=== PATIENT | female | born 1945 | race Caucasian/White ===

== ENCOUNTER 2019-07-28 16:00 | Inpatient (IN) ==
[2019-07-28] MEDS ORDERED: LASIX IV ONE (17:18)
--- NOTE | 2019-07-28 17:19 | PROVIDER DOCUMENTATION ---
This chart was entered by Daksha Corrales Scribe, acting as scribe for Franky Fisher MD. HPI-Respiratory General - General Chief Complaint: Shortness of Breath Stated Complaint: ABN CHEST X RAY Time Seen by Provider: 07/28/19 16:55 Source: patient Allergies/Adverse Reactions: Patient Allergies Allergy/AdvReac Type Severity Reaction Status Date / Time No Known Allergies Allergy Verified 07/28/19 16:23 Home Medications: Home Medication List Medication Instructions Recorded Confirmed Last Taken Type Albuterol Sulfate [Proair Hfa] 8.5 gm INHALATION Q6HR 07/28/19 07/28/19 Unknown History Apixaban [Eliquis] 5 mg PO DAILY 07/28/19 07/28/19 Unknown History Ascorbic Acid/Ascorbate Sodium 2 tab PO DAILY 07/28/19 07/28/19 Unknown History [Vitamin C 250 mg Tablet Chew] Cholecalciferol (Vit D3) [Vitamin 5,000 unit PO DAILY 07/28/19 07/28/19 Unknown History D3] Fluoxetine [Prozac] 20 mg PO DAILY 07/28/19 07/28/19 Unknown History Insulin Detemir [Levemir] See Protocol SUBCONJUNCTIVAL 07/28/19 07/28/19 Unknown History DIRECTED Ipratropium/Albuterol Sulfate 3 ml INHALATION Q6HR 07/28/19 07/28/19 Unknown History [Iprat-Albut 0.5-3(2.5) mg/3 ml] Iron Polysaccharide Complex [Ezfe 1 tab PO DAILY 07/28/19 07/28/19 Unknown History 200] Losartan/Hydrochlorothiazide 1 tab PO DAILY 07/28/19 07/28/19 Unknown History [Losartan-Hctz 100-12.5 mg Tab] Metformin HCl 850 mg PO BID 07/28/19 07/28/19 Unknown History Omeprazole 40 mg PO DAILY 07/28/19 07/28/19 Unknown History Ondansetron [Zofran] 4 mg PO Q6H PRN PRN 07/28/19 07/28/19 Unknown History Pravastatin Sodium 40 mg PO DAILY 07/28/19 07/28/19 Unknown History - History of Present Illness-Resp Nature of Presenting Problem: 73yof presents to ED cc SOB and abnormal chest Xray. Pt reports she was seen at her PCP/, today and told to come straight to ED b/c Xray showed fluid on lungs. Pt denies N/V/D. Pt has hx of COPD, CHF, HTN, DM and CVA. Quality of Pain: reports: tightness Severity in ED: reports: moderate Onset/Duration: reports: gradual Timing: reports: still present Cough Quality/Degree: reports: no cough Current Respiratory Medication Therapy: Initiated see nurses note Modifying Factors: worse with: exertion Associated Symptoms: reports: shortness of breath, short of breath Similar Symptoms Previously?: Yes Recently seen or treated by another doctor?: Yes (saw PCP today) Review of Systems - Adult - REVIEW OF SYSTEMS - ADULT Constitutional: reports: see HPI. denies: chills, fever, fatique Eyes: reports: no symptoms reported Ears, Nose, Mouth & Throat: reports: no symptoms reported Cardiovascular: reports: see HPI. denies: chest pain Respiratory: reports: see HPI, shortness of breath, wheezing. denies: cough Gastrointestinal: reports: see HPI. denies: diarrhea, nausea, vomiting Genitourinary: reports: no symptoms reported Musculoskeletal: reports: no symptoms reported Integumentary: reports: no symptoms reported Neurological: reports: no symptoms reported Psychiatric: reports: no symptoms reported Endocrine: reports: no symptoms reported Hematologic/Lymphatic: reports: no symptoms reported Allergic/Immunologic: reports: no symptoms reported All Other Systems: Reviewed and Negative Past History - Adult - PAST MEDICAL HISTORY-ADULT Review of Records: reports: Nursing Assessment Review, Medications Reviewed, Social history reviewed & non-contributory. Major Childhood Illnesses: reports: denies history Cardiovascular: reports: denies history Respiratory: reports: denies history Gastrointestinal: reports: denies history Obstetrical/Gynecological: reports: denies history Genitourinary: reports: denies history Musculoskeletal: reports: denies history Neurological: reports: denies history Endocrine/Immune: reports: denies history Other Conditions: reports: denies history - IMMUNIZATION STATUS Childhood Immunizations: See Nurse Assessment Flu Vaccine: See Nurse Assessment - FAMILY HISTORY Family History: reviewed, not pertinent - SOCIAL HISTORY Smoking: chew Physical Exam-General - PHYSICAL EXAM-ADULT Initial Vital Signs Reviewed: Yes - CONSTITUTIONAL General Appearance: appears well, alert. negative: anxious, combative - EYES Eyes: PERRL/EOMI, pink conjunctivae. negative: photophobia - HEAD, EARS, NOSE, MOUTH & THROAT HENMT: normocephalic/atraumatic, moist mucous membranes, normal ENT inspection. negative: angioedema - NECK Neck: non-tender, full range of motion, supple, normal inspection. negative: C- spine tenderness - RESPIRATORY Respiratory: chest non-tender, normal breath sounds, no pleuratic chest pain, no respiratory distress, no accessory muscle use, wheezing. negative: lungs clear, crackles, rales, rhonchi, stridor - CARDIOVASCULAR Cardiovascular: normal peripheral pulses, regular rate, rhythm, no gallop, no JVD, no murmur. negative: no edema, bradycardia, tachycardia - GASTROINTESTINAL (ABDOMEN) Abdominal Exam: normal bowel sounds, non tender, soft, no organomegaly, no pulsatile mass. negative: distended, guarding, rigid, rebound, tenderness - MUSCULOSKELETAL Extremity: pedal edema. negative: deformity - SKIN Integumentary: swelling (both lower legs). negative: jaundice - PSYCHIATRIC Psych/Mental Status: normal mood/affect, oriented x 3. negative: anxious, disheveled Progress - PLAN OF CARE/RESULTS Progress/Plan/Lab Results: Vital Signs - 8 hr 07/28/19 16:08 07/28/19 17:09 Temperature 98.7 F Pulse Rate 88 83 Respiratory Rate 22 26 H Blood Pressure 182/92 194/105 O2 Sat by Pulse Oximetry 93 L 98 - CONSULTS/PCP/HOSPITALIST Notification #1 *Consult/PCP/Hospitalist*: Dr. Clancy Time Discussed: 17:06 Consult Disposition: Admit (accepted pt) Departure - Departure Date of Disposition Decision: 07/28/19 Time of Disposition Decision: 17:15 DIAGNOSIS: Heart failure Qualifiers: Heart failure type: unspecified Heart failure chronicity: unspecified Qualified Code(s): I50.9 - Heart failure, unspecified Disposition: ADMITTED INPATIENT 09 Certified Medical Emergency: Emergent Condition: Stable Additional Freetext Instructions: ED Follow Up Instructions: You have been treated by a care provider in the Emergency Department. These instructions are being provided to you so you can have an understanding of how to care for yourself upon discharge. Upon discharge from the Emergency Department, you are responsible for making arrangements for follow-up care by a physician of your choice. Take all prescribed medications as directed. Return to the Emergency Department immediately for any new or worsening symptoms. You may call the Physician Referral phone number at [phone] to obtain a list of Physicians who are taking new patients. Referrals and Follow-Ups: Theron Looney CRNP [Primary Care Provider] - - Critical Care Note This patient required my direct & personal management of CC.: No Attestation - Physician/ MADELYN Attestation Patient care was provided by Advanced Practice Provider:: No The physician spent face to face time with patient:: Yes Advanced Practice Provider documentation review:: Supervising physician onsite and consulted in the evaluation and care of this patient. The physician did have a face to face encounter with the patient. This chart was documented by the indicated scribe, (Daksha Corrales Scribe) and accurately reflects the services I performed and decisions made by me, Franky Fisher MD, as attested by the provider's signature.
[2019-07-28 17:32] LABS: BASO# 0.06 X1000 (0.0-0.2); EOS# 0.44 X1000 (0.0-0.7); EOS% 7.4 % (0.0-10.0); HEMATOCRIT 31.8 % (37.0-47.0); HEMOGLOBIN 9.4 g/dL (12.0-16.0); IMM GRAN# 0.02 X1000 (0.0-0.04); IMM GRAN% 0.3 % (0.0-0.5); LYMPH# 1.22 X1000 (1.2-3.4); LYMPH% 20.4 % (20.5-51.1); MCHC 29.6 g/dL (33-37); MCV 88.1 FL (81-99); MONO% 6.7 % (1.7-9.3); MPV 9.9 FL (7.4-10.4); NEUT# 3.84 X1000 (1.4-6.5); NEUT% 64.2 % (42.2-75.2); PLT 299 X1000 (130-400); RBC 3.61 XMIL (4.2-5.4); RDW 15.7 % (11.5-14.5); WBC 5.98 X1000 (4.8-10.8)
[2019-07-28 17:52] LABS: CALCIUM 8.4 mg/dL (8.8-10.2); CREATININE 1.4 mg/dL (0.5-0.9); POTASSIUM 4.8 mmol/L (3.5-5.1)
[2019-07-28] MEDS ORDERED: ZOFRAN PO PRN (18:24)
[2019-07-28] MEDS ORDERED: TYLENOL PO PRN (18:24)
[2019-07-28] MEDS ORDERED: ZOFRAN IV PRN (18:24)
[2019-07-28] MEDS: LASIX IV SCH (19:53)
[2019-07-28] MEDS: HUMALOG SUBQ SCH (20:29)
[2019-07-28 21:12] LABS: BILIRUBIN URINE NEGATIVE (NEGATIVE); BLOOD URINE NEGATIVE (NEGATIVE); CLARITY CLEAR (CLEAR); COLOR YELLOW; GLUCOSE URINE NEGATIVE (NEGATIVE); KETONE URINE NEGATIVE (NEGATIVE); LEUKOCYTES URINE NEGATIVE (NEGATIVE); NITRITE URINE NEGATIVE (NEGATIVE); PH URINE 6.5; PROTEIN URINE 1+(30 mg/dL) mg/dL (NEGATIVE); SP GRAVITY URINE 1.005; UROBILINOGEN URINE NORMAL
[2019-07-28 21:17] LABS: URINE BACTERIA NEGATIVE /HFP; URINE EPITHELIAL CELLS <10 /HPF (<10); URINE RBC <10 /HPF (<10); URINE SOURCE CLEAN CATCH; URINE WBC <10 /HPF (<10)
[2019-07-28] MEDS: DUONEB (A & A) INH SCH (21:52)
[2019-07-28] MEDS ORDERED: VENTOLIN HFA INH SCH (22:00)
--- NOTE | 2019-07-28 22:22 | HISTORY AND PHYSICAL ---
PRIMARY CARE PHYSICIAN: SAMIR Contreras CHIEF COMPLAINT: Shortness of breath x2 weeks that has progressively worsened. HISTORY OF PRESENTING ILLNESS: This is a 73-year-old female who presents to [facility] ER with complaints of shortness of breath over the past 2 weeks. States that she saw her primary care physician Dr. Looney earlier this week on the and got a chest x-ray, went back to see him today because her shortness of breath had worsened and so he sent her to the emergency room after her chest x-ray that was done on 07/24/2019 showed a new large right pleural effusion, cardiomegaly and pulmonary emphysema. So, she will be admitted for further evaluation and treatment. PAST MEDICAL HISTORY: COPD, CHF, CVA, hypertension, diabetes type 2. PAST SURGICAL HISTORY: A colon surgery but family was unaware of exactly what it was, a cholecystectomy and an appendectomy. FAMILY HISTORY: Reviewed and noncontributory. SOCIAL HISTORY: She currently lives with family. Chews tobacco. Denied any alcohol or illicit drug use. ALLERGIES: She has no known drug allergies. HOME MEDICATIONS: She takes ProAir inhaler q.6 hours, Eliquis 5 mg p.o. daily, vitamin C 2 tablets p.o. daily, vitamin D 5000 units p.o. daily, Prozac 20 mg p.o. daily, Levemir sliding scale will be held, ipratropium albuterol nebulizer q.6 hours, iron tablet 200 mg p.o. daily, losartan/hydrochlorothiazide 100/12.5 p.o. daily, metformin 850 mg p.o. b.i.d., omeprazole 40 mg p.o. daily, Zofran 4 mg p.o. q.6 hours p.r.n. and pravastatin 40 mg p.o. daily. LABORATORY DATA: No labs have been obtained at this time. We will order a CBC, CMP, CK profile, troponin and a BMP stat. We will also recheck another two-view chest x-ray today. REVIEW OF SYSTEMS: She denied any fever, chills, blurred vision, dizziness, chest pain, coughing. She has had shortness of breath for 2 weeks that has progressively worsened. She denied any abdominal pain, constipation, diarrhea, burning or hurting with urination. She does have edema to her bilateral lower extremities. PHYSICAL EXAMINATION: VITAL SIGNS: On arrival, she had a temperature of 98.7 degrees, pulse 88, respirations 22, blood pressure 182/92, saturating 93% on room air. GENERAL: This is a 73-year-old female, lying in the bed, answers questions appropriately. HEENT: Normocephalic, atraumatic. Normal ENT inspection. Oropharynx and nares are clear. Eyes: Pupils are equal, round, reactive to light and accommodation. Extraocular movements are intact. NECK: Normal inspection, normal range of motion. LUNGS: With decreased breath sounds to her right lung and all her bases, clear to her left. Equal lung expansion. Chest wall movement noted. HEART: Regular rate and rhythm. No murmurs, rubs, or gallops. She has 2 to 3+ pitting edema to her bilateral lower extremities. ABDOMEN: Soft, nontender, nondistended. Bowel sounds are present x4 quadrants. MUSCULOSKELETAL: She has 4/5 strength x4 extremities. NEUROLOGICAL: The cranial nerves 2 through 12 appear grossly intact. ASSESSMENT: 1. Large right pleural effusion. 2. Shortness of breath. 3. Hypertension. 4. Diabetes type 2. 5. Tobacco abuse. PLAN: She will be admitted to the medical unit. Again, we are awaiting all labs and a new chest x-ray. We will place on Lasix 40 mg IV q.12, continue home medicines as previously identified, diabetic diet, O2 per protocol, telemetry. Place SCDs for DVT prophylaxis. We will place on pattern blood sugars with sliding scale insulin, and we will recheck a CBC, BMP in the a.m., and further orders after seen by attending. Dictated by SAMIR Dasilva for Dandy Clancy MD cc: SAMIR Dasilva MD
--- NOTE | 2019-07-29 00:04 | HISTORY AND PHYSICAL ---
ADDENDUM The patient came in. She was seen about 5 days ago, she was sent for an x-ray, it showed a pleural effusion with 50% volume loss on the right. I guess she followed up with her PCP today for the results of her x-ray on the 07/24, and she was sent to the ER for admission. At which point, the ER, as far as I can tell, just decided to admit her and not do anything else. We did not repeat the x-ray, we did not do any labs until we were called to evaluate the patient. She does have heart failure. This could be congestive heart failure with a right-sided pleural effusion. We will admit her. She will likely need a thoracentesis. I agree with diuretics. We may need to do antibiotics, but she has no fever, no white count. I have ordered a CT to better evaluate her pleural effusion, especially since it is 5 days since her last imaging. We will decide about thoracentesis and other care afterwards. Also, get an echocardiogram and follow closely. Her last echocardiogram was in January, and showed an EF of 50 to 55 percent, and that otherwise was normal. This is a [id number] encounter note with Arcelia Thornton. cc: Dandy Clancy MD
[2019-07-29] MEDS: DUONEB (A & A) INH SCH ×4 (04:05→22:58)
[2019-07-29] MEDS: LASIX IV SCH ×2 (05:55→18:18)
[2019-07-29] MEDS: COZAAR PO SCH ×2 (06:04→12:37)
[2019-07-29] MEDS: HUMALOG SUBQ SCH (06:04)
[2019-07-29 07:05] LABS: BASO# 0.05 X1000 (0.0-0.2); BASO% 0.8 % (0.0-0.8); EOS# 0.59 X1000 (0.0-0.7); EOS% 9.6 % (0.0-10.0); HEMATOCRIT 31.5 % (37.0-47.0); IMM GRAN# 0.01 X1000 (0.0-0.04); IMM GRAN% 0.2 % (0.0-0.5); LYMPH% 21.2 % (20.5-51.1); MCH 25.6 PG (27-31); MCHC 28.6 g/dL (33-37); MCV 89.7 FL (81-99); MONO# 0.47 X1000 (0.11-0.59); MONO% 7.7 % (1.7-9.3); NEUT# 3.72 X1000 (1.4-6.5); NEUT% 60.5 % (42.2-75.2); PLT 282 X1000 (130-400); RBC 3.51 XMIL (4.2-5.4); RDW 15.7 % (11.5-14.5); WBC 6.14 X1000 (4.8-10.8)
[2019-07-29 07:15] LABS: CALCIUM 8.4 mg/dL (8.8-10.2); CREATININE 1.6 mg/dL (0.5-0.9); POTASSIUM 4.2 mmol/L (3.5-5.1)
[2019-07-29] MEDS ORDERED: GLUCOPHAGE PO SCH (08:00)
[2019-07-29] MEDS: VITAMIN D PO SCH (08:29)
[2019-07-29] MEDS: VITAMIN C PO SCH (08:29)
[2019-07-29] MEDS: PROZAC PO SCH (08:29)
[2019-07-29] MEDS: HEMOCYTE PLUS CAPSULE PO SCH (08:48)
[2019-07-29] MEDS ORDERED: ELIQUIS PO SCH (09:00)
[2019-07-29] MEDS ORDERED: PRILOSEC PO SCH (09:00)
[2019-07-29] MEDS ORDERED: HYDROCHLOROTHIAZIDE PO SCH (09:00)
[2019-07-29] MEDS ORDERED: PRAVACHOL PO SCH (09:00)
--- NOTE | 2019-07-29 13:37 | Diag Imaging Result Doc PS360 ---
EXAM: CT THORAX W/O CONTRAST INDICATION: PNA TECHNIQUE: This exam was performed using automated exposure control, adjustment of mA or kV according to patient size, and/or use of iterative reconstruction technique. COMPARISON: None. FINDINGS: There is a large right pleural effusion and a very small left effusion. There is marked atelectasis on the right with only a small portion of the right lower lobe and right middle lobe that are aerated. There is mild subsegmental atelectasis at the left lung base. There is mild groundglass opacity at the lung bases likely representing edema. Superimposed pneumonia in the regions of the atelectasis is possible but there is nothing that would necessarily indicate this per se. There is cardiomegaly. There is no evidence of significant mediastinal or hilar lymphadenopathy as imaged with unenhanced CT. There are a few calcified mediastinal and right hilar lymph nodes indicating prior granulomatous disease. Limited views of the upper abdomen are essentially unremarkable. IMPRESSION: 1.Large right pleural effusion with significant atelectasis on the right and small left effusion with mild subsegmental atelectasis. 2.Mild groundglass opacities with a basilar predominance that likely represents edema. 3.Cardiomegaly. Electronically signed by Kg Whitmore 07/29/2019 1:34 PM
--- NOTE | 2019-07-29 13:54 | PROGRESS NOTE ---
DATE: 07/29/2019 SUBJECTIVE: Patient has no major complaints. Her breathing, she feels, is not that much improved. OBJECTIVE: Vital signs: Blood pressure is 178/78, heart rate of 87, respiratory 16, temperature 98 degrees, 100% on 2 L. Cardiovascular: Regular rate and rhythm. Pulmonary: Bilateral breath sounds, diminished at the bases, especially at the right base. GI: Soft, nontender, nondistended. Bowel sounds are positive. LABORATORY DATA: Creatinine is up to 1.6, but I think she has got baseline renal insufficiency from what I understand. I do not have anything to compare to, but she has seen Dr. Carr in the past, I guess lost to follow up, I am not sure. PROBLEM LIST: 1. Right pleural effusion, most likely related to congestive heart failure exacerbation and diastolic. I am waiting on her CT scan to get a sense if it is loculated or not and then assess about a possible thoracentesis. At this point, there is no clear infection. Her white count is normal. No fever. Her proBNP being very elevated would be most consistent, and it is a right-sided pleural effusion, would be most consistent with a CHF related issue. 2. Hypertension is not controlled. We will continue to follow. She is on metformin, but she should not be on that with her renal dysfunction. She is supposed to be on losartan. I am going to add Norvasc, and we will monitor. 3. Chronic obstructive pulmonary disease, appears to be stable. Continue to follow. 4. Diabetes, also appears to be stable. Continue regular medications. We will have to substitute her Detemir for other treatments. 5. Now it should be noted she apparently is on Eliquis, which we are going to have to hold that because I can not do a thoracentesis, and it is probably going to take a couple days before it is out of her system before we can do a thoracentesis, but I do not think she is currently getting the apixaban. She has just been on it previously. cc: Dandy Clancy MD
[2019-07-29] MEDS ORDERED: FLOVENT 110 MICROGM HFA INH SCH (15:00)
[2019-07-29] MEDS: HUMALOG (PARKWAY) SUBQ SCH ×2 (17:01→22:24)
[2019-07-29] MEDS: SYMBICORT 160/4.5 MICROGM INHALER INH SCH (19:06)
[2019-07-29] MEDS: FLOVENT 110 MICROGM HFA INH SCH (19:06)
[2019-07-30] MEDS: DUONEB (A & A) INH SCH ×4 (04:13→22:41)
[2019-07-30] MEDS: LASIX IV SCH (06:32)
[2019-07-30] MEDS: PRILOSEC PO SCH (06:41)
[2019-07-30] MEDS: HUMALOG (PARKWAY) SUBQ SCH ×4 (06:41→21:13)
[2019-07-30 06:53] LABS: BASO# 0.04 X1000 (0.0-0.2); BASO% 0.6 % (0.0-0.8); EOS# 0.71 X1000 (0.0-0.7); EOS% 11.5 % (0.0-10.0); HEMATOCRIT 31.4 % (37.0-47.0); HEMOGLOBIN 9.1 g/dL (12.0-16.0); IMM GRAN# 0.01 X1000 (0.0-0.04); IMM GRAN% 0.2 % (0.0-0.5); LYMPH# 1.01 X1000 (1.2-3.4); LYMPH% 16.3 % (20.5-51.1); MCV 89.7 FL (81-99); MONO# 0.51 X1000 (0.11-0.59); MONO% 8.2 % (1.7-9.3); NEUT# 3.91 X1000 (1.4-6.5); NEUT% 63.2 % (42.2-75.2); PLT 265 X1000 (130-400); RDW 15.8 % (11.5-14.5); WBC 6.19 X1000 (4.8-10.8)
[2019-07-30 07:29] LABS: CALCIUM 8.8 mg/dL (8.8-10.2); CREATININE 1.4 mg/dL (0.5-0.9); POTASSIUM 3.9 mmol/L (3.5-5.1)
[2019-07-30] MEDS: SYMBICORT 160/4.5 MICROGM INHALER INH SCH ×2 (07:30→19:21)
[2019-07-30] MEDS: FLOVENT 110 MICROGM HFA INH SCH ×2 (07:33→19:21)
[2019-07-30 08:22] LABS: INR 0.94; PROTIME 13.1 Seconds (11.0-16.0); PTT 28.2 Seconds (22.3-41.8)
[2019-07-30] MEDS ORDERED: NON-FORMULARY MED (Omeprazole 40 MG) PO SCH (09:00)
[2019-07-30] MEDS ORDERED: PROZAC PO SCH (09:00)
[2019-07-30] MEDS ORDERED: PRAVACHOL PO SCH (09:00)
[2019-07-30] MEDS: COZAAR PO SCH (10:14)
[2019-07-30] MEDS: VITAMIN D PO SCH (10:14)
[2019-07-30] MEDS: HEMOCYTE PLUS CAPSULE PO SCH (10:14)
[2019-07-30] MEDS: VITAMIN C PO SCH (10:14)
[2019-07-30] MEDS: PROZAC PO SCH (10:15)
[2019-07-30] MEDS: ICAR-C PO SCH (10:15)
--- NOTE | 2019-07-30 12:48 | ECHO REPORT ---
ORDER DATE: 07/28/2019 INTERPRETING PHYSICIAN: Dr. Kyaw Mendez. ECHOCARDIOGRAPHIC MEASUREMENTS: 1. Interventricular septum 1.6. 2. Left ventricular posterior wall 1.6. 3. Diastolic diameter 4.6. 4. Left ventricular systolic diameter 3.7. 5. Left atrium 3.5. 6. Aorta 3. SUMMARY OF THE 2-DIMENSIONAL IMAGIN. There is mild biatrial enlargement. 2. The aortic valve leaflets were trileaflet. 3. Mitral valve was normal. There is mitral annular calcification. 4. Tricuspid valve was normal. 5. Peak velocity across the aortic valve less than 2 m/sec. There is no aortic stenosis or regurgitation. 6. There is mild tricuspid regurgitation. Peak velocity across the tricuspid valve was 3.4 m/sec. 7. Pulmonary artery systolic pressure of 56 mmHg. 8. Normal left ventricular cavity size. Estimated ejection fraction of 40% to 45%. There is concentric left ventricular hypertrophy associated with grade 2 diastolic dysfunction. 9. There is no pericardial effusion or obvious intracardiac mass or thrombus seen. cc: MD Dandy Cason MD
--- NOTE | 2019-07-30 14:55 | PROGRESS NOTE ---
DATE: 07/30/2019 SUBJECTIVE: Patient has no major complaints. She just does not feel good, but she has been NPO apparently. OBJECTIVE: Blood pressure is 173/76, heart rate 90, respiratory rate 20, temperature 98.6 degrees, 98% on 2 L.Cardiovascular: Regular rate and rhythm. Pulmonary: Bilateral breath sounds clear to auscultation. GI: Soft, nontender, nondistended. Bowel sounds are positive. LABORATORY DATA: Her white count is 6. Hemoglobin and hematocrit 9 and 31, platelets 265,000. Coags look good. Creatinine is 1.4. PROBLEM LIST: A large pleural effusion on the right, most likely related to congestive heart failure , although I am waiting on her echocardiogram report shows some systolic dysfunction or mild systolic dysfunction and grade 2 diastolic dysfunction consistent with heart failure. Her CT just showed the effusion, questionable atelectasis, cardiomegaly, so all this seems to be related to failure and she will likely need ultrasound guided thoracentesis. Unfortunately, she has been on Eliquis up until a couple days ago because it is an outpatient medicine, but she took it the 13th so I think we are going to just wait until tomorrow and then plan to do thoracentesis tomorrow. cc: Dandy Clancy MD
--- NOTE | 2019-07-30 19:10 | Diag Imaging Result Doc PS360 ---
EXAM: CHEST-PORTABLE INDICATION: dyspnea TECHNIQUE: One view COMPARISON: 07/24/2019 FINDINGS: There are increased interstitial markings bilaterally suggesting pulmonary edema. There is a stable moderate-sized right pleural effusion. There is stable cardiomegaly. IMPRESSION: Pulmonary edema and a moderate-sized right pleural effusion as described. Electronically signed by Kg Whitmore 07/30/2019 7:08 PM
[2019-07-30] MEDS: PRAVACHOL PO SCH (20:18)
[2019-07-31] MEDS: DUONEB (A & A) INH SCH ×4 (04:14→22:39)
[2019-07-31] MEDS: HUMALOG (PARKWAY) SUBQ SCH ×5 (06:25→22:04)
[2019-07-31] MEDS: PRILOSEC PO SCH (06:26)
[2019-07-31 07:02] LABS: BASO# 0.07 X1000 (0.0-0.2); BASO% 1.1 % (0.0-0.8); EOS# 0.83 X1000 (0.0-0.7); EOS% 13.5 % (0.0-10.0); HEMATOCRIT 31.9 % (37.0-47.0); HEMOGLOBIN 9.2 g/dL (12.0-16.0); LYMPH% 17.9 % (20.5-51.1); MCHC 28.8 g/dL (33-37); MCV 90.1 FL (81-99); MONO# 0.57 X1000 (0.11-0.59); MONO% 9.3 % (1.7-9.3); MPV 9.8 FL (7.4-10.4); NEUT# 3.58 X1000 (1.4-6.5); NEUT% 58.2 % (42.2-75.2); PLT 275 X1000 (130-400); RBC 3.54 XMIL (4.2-5.4); RDW 15.8 % (11.5-14.5); WBC 6.15 X1000 (4.8-10.8)
[2019-07-31 07:25] LABS: CALCIUM 8.5 mg/dL (8.8-10.2); CREATININE 1.4 mg/dL (0.5-0.9); POTASSIUM 4.1 mmol/L (3.5-5.1)
[2019-07-31] MEDS: FLOVENT 110 MICROGM HFA INH SCH ×2 (08:23→19:10)
[2019-07-31] MEDS: SYMBICORT 160/4.5 MICROGM INHALER INH SCH ×2 (08:23→19:10)
[2019-07-31] MEDS ORDERED: LASIX IV SCH ×2 (09:00→21:00)
[2019-07-31] MEDS: HEMOCYTE PLUS CAPSULE PO SCH (12:10)
[2019-07-31] MEDS: COZAAR PO SCH (12:10)
[2019-07-31] MEDS: ICAR-C PO SCH (12:11)
[2019-07-31] MEDS: PROZAC PO SCH (12:11)
[2019-07-31] MEDS: VITAMIN C PO SCH (12:11)
[2019-07-31] MEDS: VITAMIN D PO SCH (12:12)
--- NOTE | 2019-07-31 13:05 | Diag Imaging Result Doc PS360 ---
EXAM: CHEST-PORTABLE HISTORY: s/p thoracentesis TECHNIQUE: Single view COMPARISON: 07/30/2019 FINDINGS: The lungs are well expanded. The heart is enlarged. The vessels are not distended. There are no infiltrates. No effusion identified. IMPRESSION: Cardiomegaly Electronically signed by Morro Rose 07/31/2019 1:02 PM
[2019-07-31 14:28] LABS: BODY FLUID SOURCE PLEURAL FLUID; SPECIMEN PLEURAL FLUID
--- NOTE | 2019-07-31 14:36 | PROGRESS NOTE ---
DATE: 07/31/2019 SUBJECTIVE: Patient has no major complaints. OBJECTIVE: Vital signs: Blood pressure is 179/78, heart rate of 87, saturations of 98% on 2 L. Cardiovascular: Regular rate and rhythm. Pulmonary: Bilateral breath sounds. Diminished at the bases. GI: Soft, nontender, nondistended. Bowel sounds were positive. Extremities: No clubbing or cyanosis. Lymphatic: No peripheral edema. Neurological: Nonfocal. LABORATORY DATA: White count 6, hemoglobin and hematocrit 9 and 31, platelets 275,000. Creatinine is 1.4. Chest x-ray, ultrasound, thoracentesis was done at bedside. Post films shows no pneumothorax and re-expanded lung. PROBLEM LIST: 1. Large pleural effusion, most likely transudative from heart failure. Fluid was cloudy but somewhat blood tinged. She had been recently on anticoagulation. We will continue diuretics and monitor. 2. Congestive heart failure exacerbation with diastolic dysfunction and low normal EF. We will continue diuretics and follow. 3. Chronic obstructive pulmonary disease. Continue breathing treatments, O2, and follow. DISPOSITION: If breathing is stable will hopefully get her home soon. She does have chronic renal insufficiency. We will continue to monitor closely. cc: Dandy Clancy MD
[2019-07-31 14:50] LABS: WBC BF 78 /cumm
[2019-07-31 15:28] LABS: MONOS 72 %
[2019-07-31 15:29] LABS: POLYS 28 %
--- NOTE | 2019-07-31 19:49 | OPERATIVE NOTE ---
PROCEDURE DATE: 07/31/2049 PROCEDURE: Thoracentesis. INDICATION: Large right pleural effusion. DESCRIPTION OF PROCEDURE: The patient was prepped in sterile fashion. Ultrasound guidance was obtained, which showed about 2 to 3 cm before the pocket, about 5.5 to the center of the pocket below the subscapular area. We locally anesthetized after sterilizing with chlorhexidine. We found the fluid without too much difficulty with finder needle and catheter was placed, first catheter that we could aspirate fluid easily. We used a second catheter, which was placed without difficulty. She did have blood-tinged otherwise clear fluid. We got about a liter off under evacuated container pressure. No air was aspirated. Patient tolerated procedure without difficulty. Post films showed no pneumo and pretty much resolution of her pleural effusion. We will continue to monitor closely. I would probably hold anticoagulation for at least another 24 hours to make sure she has decent hemostasis. Specimen sent off for analysis. cc: Dandy Clancy MD
[2019-07-31] MEDS: PRAVACHOL PO SCH (22:05)
[2019-07-31 23:15] LABS: LDH BODY FLUID 69 U/L
[2019-07-31 23:16] LABS: AMYLASE BODY FLUID 28 U/L; GLUCOSE BODY FLUID 133 mg/dL; TOTAL PROT BODY FLUID 1.7 g/dL
[2019-07-31 23:17] LABS: BODY FLUID SOURCE PLEURAL FLUID
[2019-08-01] MEDS: DUONEB (A & A) INH SCH ×4 (04:03→21:30)
[2019-08-01] MEDS: HUMALOG (PARKWAY) SUBQ SCH ×4 (06:11→21:20)
[2019-08-01] MEDS: PRILOSEC PO SCH (06:48)
[2019-08-01 07:26] LABS: AGAP 6; ALBUMIN 2.7 g/dL (3.5-5.0); ALKALINE PHOSPHATASE 94 U/L (32-104); BUN 26 mg/dL (8-22); CALCIUM 8.6 mg/dL (8.8-10.2); CHLORIDE 99 mmol/L (98-107); COSMO 289; CREATININE 1.4 mg/dL (0.5-0.9); DIRECT BILIRUBIN < 0.20 mg/dL (0.00-0.20); ESTIMATED GFR 37; GLUCOSE 144 mg/dL (70-104); GOT 11 U/L (10-30); GPT 7 U/L (10-36); POTASSIUM 4.5 mmol/L (3.5-5.1); SODIUM 141 mmol/L (136-145); TCO2 36 mmol/L (25-35); TOTAL PROTEIN 5.3 g/dL (6.3-8.3)
--- NOTE | 2019-08-01 07:29 | Diag Imaging Result Doc PS360 ---
EXAM: CHEST-PORTABLE HISTORY: dyspnea TECHNIQUE: Portable chest single view COMPARISON: 07/31/2019 FINDINGS: Interval development of dense right basilar infiltrates. The heart remains enlarged. The lungs are well expanded. No pleural effusions identified. IMPRESSION: Right basilar pneumonia. Electronically signed by Morro Rose 08/01/2019 7:27 AM
[2019-08-01] MEDS: SYMBICORT 160/4.5 MICROGM INHALER INH SCH ×2 (10:27→21:31)
[2019-08-01] MEDS: FLOVENT 110 MICROGM HFA INH SCH ×2 (10:28→21:30)
[2019-08-01] MEDS: VITAMIN D PO SCH (10:48)
[2019-08-01] MEDS: PROZAC PO SCH (10:48)
[2019-08-01] MEDS: COZAAR PO SCH (10:48)
[2019-08-01] MEDS: ICAR-C PO SCH (10:49)
[2019-08-01] MEDS: LASIX PO SCH ×2 (10:49→21:20)
[2019-08-01] MEDS: HEMOCYTE PLUS CAPSULE PO SCH (10:49)
[2019-08-01] MEDS: VITAMIN C PO SCH (10:49)
[2019-08-01 12:29] LABS: HEMATOCRIT 32.2 % (37.0-47.0); HEMOGLOBIN 9.3 g/dL (12.0-16.0); MCH 26.4 PG (27-31); MCHC 28.9 g/dL (33-37); MCV 91.5 FL (81-99); MPV 9.9 FL (7.4-10.4); RBC 3.52 XMIL (4.2-5.4); RDW 15.8 % (11.5-14.5); WBC 6.48 X1000 (4.8-10.8)
--- NOTE | 2019-08-01 19:45 | PROGRESS NOTE ---
DATE: 08/01/2019 SUBJECTIVE: Patient has no new complaints. States that she is feeling better although she is still weak and unstable. She is concerned about going home. OBJECTIVE: Temperature 98, pulse 85, respiratory 18, BP 135/59.General: Patient is awake, alert, she is very pleasant no distress sitting in the bed awake, alert, oriented. HEENT: Normocephalic. Neck: Supple. CV: Regular rate. Chest: Clear. No current crackles, no wheezing currently. Abdomen: Soft. Extremities: Moves all extremities. ASSESSMENT: 1. Large pleural effusion. She had thoracentesis yesterday. We are going to recheck a chest x- ray in the a.m. 2. Congestive heart failure with diastolic dysfunction. We are going to change her from IV Lasix to p.o. and follow. She currently is having -4923 mL out. 3. Chronic renal insufficiency creatinine 1.4. 4. Chronic obstructive pulmonary disease stable. PLAN: Will continue patient hospital, continue Lasix, changed p.o. Recheck chest x-ray in the a.m. Possibly home 1-2 days cc: Aden Pompa MD MTDD
[2019-08-01] MEDS: PRAVACHOL PO SCH (21:20)
[2019-08-02] MEDS: DUONEB (A & A) INH SCH ×5 (04:31→21:59)
[2019-08-02] MEDS: PRILOSEC PO SCH (06:02)
[2019-08-02] MEDS: HUMALOG (PARKWAY) SUBQ SCH ×4 (06:03→21:12)
[2019-08-02 06:09] LABS: BASO# 0.03 X1000 (0.0-0.2); BASO% 0.5 % (0.0-0.8); EOS# 0.85 X1000 (0.0-0.7); EOS% 13.3 % (0.0-10.0); HEMATOCRIT 31.6 % (37.0-47.0); HEMOGLOBIN 9.3 g/dL (12.0-16.0); IMM GRAN# 0.02 X1000 (0.0-0.04); IMM GRAN% 0.3 % (0.0-0.5); LYMPH# 1.64 X1000 (1.2-3.4); LYMPH% 25.7 % (20.5-51.1); MCH 26.6 PG (27-31); MCHC 29.4 g/dL (33-37); MCV 90.3 FL (81-99); MONO# 0.53 X1000 (0.11-0.59); MONO% 8.3 % (1.7-9.3); MPV 9.7 FL (7.4-10.4); NEUT# 3.31 X1000 (1.4-6.5); NEUT% 51.9 % (42.2-75.2); PLT 271 X1000 (130-400); RDW 15.6 % (11.5-14.5); WBC 6.38 X1000 (4.8-10.8)
[2019-08-02 06:29] LABS: ALBUMIN 2.7 g/dL (3.5-5.0); CREATININE 1.6 mg/dL (0.5-0.9); PHOSPHORUS 4.7 mg/dL (2.7-4.5); POTASSIUM 4.5 mmol/L (3.5-5.1)
--- NOTE | 2019-08-02 07:37 | Diag Imaging Result Doc PS360 ---
EXAM: CHEST-PORTABLE HISTORY: s/p thoracentesis, PNA TECHNIQUE: Chest single view COMPARISON: 08/02/2019 FINDINGS: The lungs are well expanded. The heart remains mildly enlarged. There are increased interstitial markings throughout the lungs, right greater than left. There may be a small right pleural effusion as well. The overall appearance is similar to the prior study. IMPRESSION: No interval improvement. Electronically signed by Morro Rose 08/02/2019 7:34 AM
[2019-08-02] MEDS: SYMBICORT 160/4.5 MICROGM INHALER INH SCH ×2 (07:48→21:59)
[2019-08-02] MEDS: FLOVENT 110 MICROGM HFA INH SCH ×2 (07:48→21:59)
[2019-08-02] MEDS: VITAMIN D PO SCH (09:00)
[2019-08-02] MEDS: VITAMIN C PO SCH (09:00)
[2019-08-02] MEDS: ICAR-C PO SCH (09:00)
[2019-08-02] MEDS: ROCEPHIN 1 GM in NS 50 ML IV SCH (09:00)
[2019-08-02] MEDS: COZAAR PO SCH (09:02)
[2019-08-02] MEDS: HEMOCYTE PLUS CAPSULE PO SCH (09:03)
[2019-08-02] MEDS: LASIX PO SCH ×2 (09:03→21:01)
[2019-08-02] MEDS: PROZAC PO SCH (09:03)
[2019-08-02] MEDS: DOXYCYCLINE PO SCH ×2 (09:03→21:01)
[2019-08-02] MEDS: PRAVACHOL PO SCH (21:01)
--- NOTE | 2019-08-02 21:52 | PROGRESS NOTE ---
DATE: 08/02/2019 SUBJECTIVE: The patient notes that she is feeling a little bit better. Still really has not been out of bed. Denies any cough or congestion. PHYSICAL EXAMINATION: Vital Signs: Reviewed. Temp 98 degrees, pulse 84, respiratory rate 18, BP 131/57. General: Patient is awake, currently in no respiratory distress. HEENT: Normocephalic. Neck: Supple. Cardiovascular: Regular rate. Chest: Clear. No current crackles although decreased breath sounds bilaterally. Abdomen: Soft. Extremities: Moves all extremities. ASSESSMENT: 1. Large pleural effusion, appears resolved. 2. Abnormal chest x-ray. Her chest x-ray yesterday demonstrated a right lower lobe infiltrate, although that appears to have cleared up today. She does have a mild effusion. We will recheck in the a.m. 3. Congestive heart failure. 4. Acute on chronic renal failure. 5. Others. PLAN: We will continue the patient in the hospital. Continue antibiotics, breathing treatments, oxygen. We will attempt to get out of bed while she eats. Further orders as needed. cc: Aden Pompa MD
[2019-08-03] MEDS: DUONEB (A & A) INH SCH ×5 (04:30→21:38)
[2019-08-03] MEDS: PRILOSEC PO SCH (06:26)
[2019-08-03] MEDS: HUMALOG (PARKWAY) SUBQ SCH ×4 (06:30→21:17)
[2019-08-03 06:36] LABS: BASO# 0.04 X1000 (0.0-0.2); BASO% 0.6 % (0.0-0.8); EOS# 0.88 X1000 (0.0-0.7); EOS% 13.2 % (0.0-10.0); HEMATOCRIT 32.3 % (37.0-47.0); HEMOGLOBIN 9.3 g/dL (12.0-16.0); IMM GRAN# 0.01 X1000 (0.0-0.04); IMM GRAN% 0.1 % (0.0-0.5); MCH 25.8 PG (27-31); MCHC 28.8 g/dL (33-37); MCV 89.5 FL (81-99); MONO# 0.55 X1000 (0.11-0.59); MONO% 8.2 % (1.7-9.3); MPV 9.9 FL (7.4-10.4); NEUT% 56.9 % (42.2-75.2); PLT 278 X1000 (130-400); RBC 3.61 XMIL (4.2-5.4); RDW 15.6 % (11.5-14.5); WBC 6.68 X1000 (4.8-10.8)
[2019-08-03 06:44] LABS: ALBUMIN 2.9 g/dL (3.5-5.0); CALCIUM 8.1 mg/dL (8.8-10.2); CREATININE 1.7 mg/dL (0.5-0.9); PHOSPHORUS 4.1 mg/dL (2.7-4.5); POTASSIUM 4.5 mmol/L (3.5-5.1)
[2019-08-03] MEDS: HEMOCYTE PLUS CAPSULE PO SCH (08:01)
[2019-08-03] MEDS: VITAMIN D PO SCH (08:02)
[2019-08-03] MEDS: ROCEPHIN 1 GM in NS 50 ML IV SCH (08:02)
[2019-08-03] MEDS: DOXYCYCLINE PO SCH ×2 (08:02→21:17)
[2019-08-03] MEDS: COZAAR PO SCH (08:02)
[2019-08-03] MEDS: LASIX PO SCH ×2 (08:03→21:17)
[2019-08-03] MEDS: VITAMIN C PO SCH (08:03)
[2019-08-03] MEDS: PROZAC PO SCH (08:03)
[2019-08-03] MEDS: ICAR-C PO SCH (08:03)
[2019-08-03] MEDS: SYMBICORT 160/4.5 MICROGM INHALER INH SCH ×2 (08:19→21:38)
[2019-08-03] MEDS: FLOVENT 110 MICROGM HFA INH SCH ×2 (08:19→21:38)
[2019-08-03] MEDS: PRAVACHOL PO SCH (21:17)
--- NOTE | 2019-08-04 00:10 | PROGRESS NOTE ---
DATE: 08/03/2019 SUBJECTIVE: Patient notes that she is feeling better. Still having cough and congestion. Still really has not been out of bed other than to the restroom and needs assistance. OBJECTIVE: Vital Signs: Temperature 98 degrees, pulse 80, respiratory rate 18, BP 111/50. General: Patient is awake, currently in no respiratory distress. HEENT: Normocephalic. Neck: Supple. Cardiovascular: Regular rate. Chest: Clear. Abdomen: Soft. Extremities: Moves all extremities although generalized weakness. ASSESSMENT: 1. Right basilar pneumonia. 2. Congestive heart failure with exacerbation. 3. Chronic obstructive pulmonary disease. 4. Chronic kidney injury. PLAN: Continue patient in the hospital. Continue physical therapy, antibiotics, Lasix. Home when better able to ambulate. cc: Aden Pompa MD
[2019-08-04] MEDS: DUONEB (A & A) INH SCH ×4 (03:12→19:40)
[2019-08-04] MEDS: PRILOSEC PO SCH (06:18)
[2019-08-04] MEDS: HUMALOG (PARKWAY) SUBQ SCH ×4 (06:46→21:28)
[2019-08-04 07:15] LABS: BASO# 0.05 X1000 (0.0-0.2); BASO% 0.9 % (0.0-0.8); EOS# 0.75 X1000 (0.0-0.7); HEMATOCRIT 35.1 % (37.0-47.0); HEMOGLOBIN 10.2 g/dL (12.0-16.0); IMM GRAN# 0.02 X1000 (0.0-0.04); IMM GRAN% 0.3 % (0.0-0.5); LYMPH# 1.14 X1000 (1.2-3.4); LYMPH% 19.8 % (20.5-51.1); MCHC 29.1 g/dL (33-37); MCV 89.3 FL (81-99); MONO# 0.44 X1000 (0.11-0.59); MONO% 7.7 % (1.7-9.3); MPV 10.1 FL (7.4-10.4); NEUT# 3.35 X1000 (1.4-6.5); NEUT% 58.3 % (42.2-75.2); PLT 291 X1000 (130-400); RBC 3.93 XMIL (4.2-5.4); RDW 15.5 % (11.5-14.5); WBC 5.75 X1000 (4.8-10.8)
[2019-08-04 07:31] LABS: CALCIUM 8.7 mg/dL (8.8-10.2); CREATININE 1.6 mg/dL (0.5-0.9); POTASSIUM 4.3 mmol/L (3.5-5.1)
[2019-08-04] MEDS: ROCEPHIN 1 GM in NS 50 ML IV SCH (07:57)
[2019-08-04] MEDS: COZAAR PO SCH (08:00)
[2019-08-04] MEDS: ICAR-C PO SCH (08:00)
[2019-08-04] MEDS: DOXYCYCLINE PO SCH ×2 (08:01→21:28)
[2019-08-04] MEDS: VITAMIN C PO SCH (08:01)
[2019-08-04] MEDS: VITAMIN D PO SCH (08:01)
[2019-08-04] MEDS: LASIX PO SCH ×2 (08:01→21:28)
[2019-08-04] MEDS: PROZAC PO SCH (08:01)
[2019-08-04] MEDS: HEMOCYTE PLUS CAPSULE PO SCH (08:01)
--- NOTE | 2019-08-04 08:37 | Diag Imaging Result Doc PS360 ---
EXAM: CHEST-2 VIEWS HISTORY: PLEURAL EFFUSION, PNA TECHNIQUE: PA and Lateral chest x-ray COMPARISON: 08/02/2019 FINDINGS: There is cardiomegaly. There are small bilateral effusions. Vascular congestion and interstitial markings have decreased from prior. The pulmonary vasculature is not congested.. IMPRESSION: Decreasing interstitial edema and vascular congestion. Small bilateral effusions. Electronically signed by Marjorie Acevedo 08/04/2019 8:34 AM
[2019-08-04] MEDS: FLOVENT 110 MICROGM HFA INH SCH ×2 (09:24→19:50)
[2019-08-04] MEDS: SYMBICORT 160/4.5 MICROGM INHALER INH SCH ×2 (09:24→19:51)
--- NOTE | 2019-08-04 15:04 | PROGRESS NOTE ---
DATE: 08/04/2019 SUBJECTIVE: The patient notes that she is feeling a lot better. She is still tired and fatigued. Denies any fevers or chills. PHYSICAL EXAMINATION: Vital Signs: Temperature 97 degrees, pulse 90, respiratory rate 18, blood pressure 129/43. General: Patient is awake, alert. She is in no distress. HEENT: Normocephalic. Neck: Supple. Cardiovascular: Regular rate. Chest: Clear. Abdomen: Soft. Extremities: Moves all extremities. ASSESSMENT: 1. Pleural effusion, resolved. 2. Pneumonia, improved. 3. Adult failure to thrive. Patient was able to ambulate to the door with assistance but not much further. 4. Chronic obstructive pulmonary disease. PLAN: We will continue patient in the hospital. Continue Lasix although have changed to p.o. Continue antibiotics. Physical therapy. Further orders as needed. cc: Aden Pompa MD
[2019-08-04] MEDS: PRAVACHOL PO SCH (21:28)
[2019-08-05] MEDS: DUONEB (A & A) INH SCH ×3 (04:14→10:27)
[2019-08-05] MEDS: HUMALOG (PARKWAY) SUBQ SCH ×2 (06:42→11:19)
[2019-08-05] MEDS: PRILOSEC PO SCH (06:43)
[2019-08-05] MEDS: ICAR-C PO SCH (08:13)
[2019-08-05] MEDS: VITAMIN D PO SCH (08:13)
[2019-08-05] MEDS: COZAAR PO SCH (08:13)
[2019-08-05] MEDS: LASIX PO SCH (08:14)
[2019-08-05] MEDS: HEMOCYTE PLUS CAPSULE PO SCH (08:14)
[2019-08-05] MEDS: PROZAC PO SCH (08:14)
[2019-08-05] MEDS: DOXYCYCLINE PO SCH (08:14)
[2019-08-05] MEDS: ROCEPHIN 1 GM in NS 50 ML IV SCH (08:14)
[2019-08-05] MEDS: VITAMIN C PO SCH (08:14)
[2019-08-05] MEDS: FLOVENT 110 MICROGM HFA INH SCH (10:27)
[2019-08-05] MEDS: SYMBICORT 160/4.5 MICROGM INHALER INH SCH (10:27)
[2019-08-05 11:08] VITALS: BP 132/50
--- NOTE | 2019-08-05 13:51 | DISCHARGE SUMMARY ---
ADMISSION DATE: 07/28/2019 DISCHARGE DATE: 08/05/2019 DISCHARGE DIAGNOSES: 1. Large pleural effusion, resolved. 2. Congestive heart failure with exacerbation, diastolic, improved. 3. Right basilar pneumonia, improved. 4. Hypoxic respiratory failure, resolved. 5. Chronic obstructive pulmonary disease with exacerbation, stable. CONSULTATIONS: None. PROCEDURES: Thoracentesis by Dr. Clancy. BRIEF HOSPITAL COURSE: The patient is a 73-year-old female who presented to the hospital with cough, congestion, shortness of breath, diagnosed with a large pleural effusion, as well as pneumonia. She was placed on antibiotics, oxygen and she did undergo a thoracentesis, which she tolerated very well. On discharge, her symptoms have completely resolved. She is able to ambulate without any difficulty. Overall, she notes that she is feeling tremendously better. She is able to ambulate without any difficulties. DISPOSITION: Patient will be discharged home. She will continue Lasix, antibiotics at home. She will follow up outpatient with primary care. Thankfully, she does not require oxygen currently. Greater than 30 minutes was spent in total care. cc: Aden Pompa MD
--- NOTE | 2019-08-05 13:52 | DISCHARGE SUMMARY ---
ADMISSION DATE: 07/28/2019 DISCHARGE DATE: 08/05/2019 DIAGNOSES: 1. Right pleural effusion, status post thoracentesis, ultrasound guiding, for 1 L of blood-tinged fluid obtained. 2. Hypertension. 3. Chronic obstructive pulmonary disease. 4. Diabetes mellitus. 5. Right basilar pneumonia. 6. Chronic kidney disease. 7. Congestive heart failure with ejection fraction of 40% next. DIAGNOSTICS: 1. Echocardiogram 07/28/2019 revealed normal left ventricular cavity size with an estimated ejection fraction of 40% to 45% with concentric left ventricular hypertrophy, with grade 2 diastolic dysfunction. No pericardial effusion or obvious intracardiac mass or thrombus seen. 2. 07/29/2019, CT of the chest with a large right pleural effusion with significant atelectasis on the right and a small left effusion with mild subsegmental atelectasis. Mild ground-glass opacities with a basilar predominance that likely represents edema and cardiomegaly. 3. 07/30/2019, chest x-ray revealed pulmonary edema and a moderate-sized pleural effusion. 4. 07/31/2019, chest x-ray revealed cardiomegaly. Lungs are well expanded. There are no infiltrates. No effusion identified. 5. 08/01/2019, chest x-ray revealed right basilar pneumonia. Lungs are well expanded. No pleural effusions identified. 6. 08/02/2019 reveals lungs well expanded. Heart remains mildly enlarged. There are increased interstitial markings throughout the lungs, right greater than left. There might be a small right pleural effusion. 7. Chest x-ray 08/04/2019, decreasing interstitial edema and vascular congestion with cardiomegaly. MICROBIOLOGY: Pleural fluid routine culture revealed no growth. Gram stain of pleural fluid revealed no bacteria seen. HOSPITAL COURSE: Ms. Whitmore presented to the emergency room complaining of 2 weeks of progressive shortness of breath. She was found to have a large right pleural effusion for which she underwent thoracentesis for a liter of blood-tinged fluid. Culture and Gram stain revealed no growth. Thankfully, she has improved after thoracentesis. She continues to be tired and fatigued, although her shortness of breath has resolved. The patient had previously been on Eliquis. This was held in preparation for the thoracentesis. She was noted to have a right lower lobe infiltrate on her chest x-ray for which she initially received Rocephin and doxycycline, and she is being discharged on Omnicef and doxycycline. She is noted to have congestive heart failure with diastolic dysfunction. She was initially placed on IV Lasix, and she was diuresed for accumulative negative balance of 7303 mL. She will be discharged on her oral home dose of Lasix. We continued her home medications with the exception of Eliquis as stated above during the hospitalization. During the hospitalization, the patient was very reluctant to get out of bed due to feeling weak. She would go to the restroom with assistance. Physical Therapy was consulted. She did participate with her care, and she did ambulate 60 feet with a front wheel walker. DISCHARGE VITAL SIGNS: Blood pressure is 132/50, with heart rate of 93, respirations 16, temperature 97.9 degrees, with room air saturations 96% to 98%. DISCHARGE PHYSICAL EXAMINATION: Cardiovascular: Regular rate and rhythm. S1 and S2 appreciated. She has no lower extremity edema. Calves nontender bilateral with peripheral pulses palpable x4 extremities. Pulmonary: Breath sounds clear with no increased work of breathing noted. Chest rise and fall symmetric with respiration. Gastrointestinal: Abdomen is soft, nontender, nondistended, with bowel sounds in all 4 quadrants. Neurologic: She is alert and oriented. Skin: Skin is warm and dry. DISCHARGE MEDICATIONS: 1. Pravachol 40 mg p.o. at bedtime. 2. Potassium 10 mEq 1 p.o. daily. 3. Zofran 4 mg p.o. q.4 hours p.r.n. 4. Omeprazole 40 mg p.o. daily. 5. Metformin 850 p.o. b.i.d. 6. Losartan 100 mg p.o. daily. 7. Levemir as directed. 8. Lasix 40 mg p.o. b.i.d. 9. Fluoxetine 20 mg p.o. daily. 10. Doxycycline 100 mg p.o. b.i.d. x5 days. 11. Omnicef 300 mg p.o. b.i.d. x5 days. 12. Eliquis 5 mg p.o. b.i.d. 13. Iron complex 1 p.o. daily. 14. DuoNebs as directed. 15. Flovent 1 puff b.i.d. 16. Symbicort 160/4.5 one puff b.i.d. 17. Vitamin C two p.o. daily. FOLLOW UP: 1. SAMIR Contreras. She is to call Wednesday to schedule an appointment to be seen within the week. 2. She has been instructed to call to be seen sooner or return to the ER for any syncope, dizziness, chest pain, palpitations, any increasing shortness of breath, PND, orthopnea, productive cough, temperature greater than 101, any nausea, vomiting, diarrhea, constipation, black or bloody vomitus or stools, hematuria, dysuria, frequency, urgency, any bruising, gums bleeding or for any questions or concerns she may have. She is being discharged home in stable condition with family members with [facility]. TIME SPENT: This is a greater than 30 minute discharge. Dictated by SAMIR James for Aden Pompa MD cc: SAMIR James MD
== END 2019-08-05 13:25 | disposition home health service (06) | DRG 291 ==
LOC: P.ED 16:00 → P.MEDSURG 18:01 → SUATTDRO 18:01
PROVIDERS: ATTEND Family Medicine